=== PATIENT | female | born 1935 | race Caucasian/White ===

== ENCOUNTER 2017-08-06 10:25 | Emergency (ER) | payer MEDICARE ==
[~2017-08-06] VITALS: Ht 152.4 cm; Wt 72.7 kg
[2017-08-06] MEDS ORDERED: SODIUM CHLORIDE FLUSH 10ML SYR IVF ONE (11:00)
[2017-08-06] MEDS ORDERED: LORazepam 2 MG/ML, 1ML IVPush ONE (11:00)
[2017-08-06 11:17] LABS: BASOPHILS # (AUTO) 0.03 x10^3/uL (0-0.1); BASOPHILS % (AUTO) 0 % (0-1); EOSINOPHILS % (AUTO) 2 % (1-7); LYMPHOCYTES # (AUTO) 1.89 x10^3/uL (1-3.4); LYMPHOCYTES % (AUTO) 23 % (22-44); MD NO; MEAN CORPUSCULAR HEMOGLOBIN 27.9 pg (27.0-34.8); MEAN CORPUSCULAR HGB CONC 31.8 g/dL (32.4-35.8); MEAN CORPUSCULAR VOLUME 87.7 fL (80-100); MEAN PLATELET VOLUME 7.2 fL (7.4-10.4); MONOCYTES # (AUTO) 0.66 x10^3/uL (0.2-0.8); MONOCYTES % (AUTO) 8 % (2-9); NEUTROPHILS # (AUTO) 5.51 x10^3/uL (1.8-6.8); NEUTROPHILS % (AUTO) 66 % (42-75); PLATELET COUNT 341 x10^3/uL (130-400); RED BLOOD COUNT 3.62 x10^6/uL (3.82-5.3)
[2017-08-06 11:26] LABS: ALBUMIN 3.1 g/dL (3.4-5.0); ANION GAP 7 mmol/L (5-15); CALCIUM 8.7 mg/dL (8.5-10.1); CHLORIDE 105 mmol/L (98-107); CREATININE 0.75 mg/dL (0.55-1.02)
[2017-08-06] MEDS ORDERED: LORazepam 2 MG/ML, 1ML ONE (11:49)
[2017-08-06] MEDS ORDERED: GADOBUTROL 7.5 MMOL/7.5 ML PFS ONE (12:25)
[2017-08-06 14:30] VITALS: BP 104/51
== END 2017-08-06 14:32 | disposition home or self-care (01) ==
LOC: ED 14:18
DX: C71.9 Malignant neoplasm of brain, unspecified (principal); H53.129 Transient visual loss, unspecified eye
CPT/HCPCS: 36415; 70553; 80048; 82040; 85025; 96374; 99285; A9585; J2060